=== PATIENT | female | born 1965 | race Caucasian/White ===

== ENCOUNTER → 2016-08-28 | Outpatient (CLI) | payer OTHER ==
[~2016-08-28] MED LIST: ALLERGY10 M1 PO; ATABEX DHA CAP1 EACH PO; FLEXERIL PO; IBUPROFEN 600600 M1 PO; MULTIVITAMINS1 EAC7 PO; NORCO 5-325 TA1 EACH PO; PROVERA2.5 MG PO; SYNTHROID75 MCG PO; VITAMIN D31000 UNI2 PO; WELLBUTRIN 100100 MG PO; [UNRECOGNIZED DRUG - OTHER]
== END ==
LOC: RAD 13:51
DX: Z12.31 Encounter for screening mammogram for malignant neoplasm of breast (principal)

== ENCOUNTER 2018-04-18 19:42 | Emergency (ER) | payer OTHER ==
[~2018-04-18] VITALS: Ht 165.1 cm; Wt 86.2 kg
[2018-04-18] MEDS ORDERED: IBUPROFEN 800800 M1 PO (21:08)
[2018-04-18] MEDS ORDERED: CLARITIN10 MG PO (21:54)
[2018-04-18] MEDS ORDERED: PHENTERMINE H37.5 M1 PO (21:55)
== END 2018-04-18 21:43 | disposition home or self-care (01) ==
LOC: ER 19:42
DX: S40.021A Contusion of right upper arm, initial encounter (principal); S70.311A Abrasion, right thigh, initial encounter; F32.9 Major depressive disorder, single episode, unspecified; G25.81 Restless legs syndrome; W11.XXXA Fall on and from ladder, initial encounter; Y92.89 Other specified places as the place of occurrence of the external cause; Y99.0 Civilian activity done for income or pay; Y99.8 Other external cause status